=== PATIENT | male | born 1965 | race African-American/Black ===

== ENCOUNTER 2025-04-25 06:54 | Emergency (ER) | payer OTHER ==
[~2025-04-25] VITALS: Ht 182.9 cm; Wt 104.3 kg
[2025-04-25 07:00] VITALS: TEMP 98.4
[2025-04-25 07:51] LABS: BASOPHILS % 0.4 % (0.0-1.0); EOSINOPHILS % 0.4 % (0.0-6.0); LYMPHOCYTES % 21.2 % (18.0-39.1); MONOCYTES % 7.3 % (4.4-11.3); NEUTROPHILS % 70.4 % (38.7-80.0); RED CELL DISTRIBUTION WIDTH 17.9 % (11.7-14.4)
[2025-04-25 08:06] LABS: EST GLOMERULAR FILTRATION RATE 50.0 ML/MIN (>=60)
[2025-04-25 08:07] LABS: LEUKOCYTE ESTERASE ,URINE NEGATIVE (NEGATIVE); PROTEIN,URINE DIPSTICK >=300 (NEGATIVE)
[2025-04-25 08:08] LABS: URINE UROBILINOGEN 1 mg/dL (0.2 - 1)
[2025-04-25] MEDS: SODIUM CHLORIDE 0.9% 1000ML 1,000 ML IV STA (08:09)
[2025-04-25] MEDS: ONDANSETRON HCL INJ 2MG/ML 2ML 2 MG/ML VIAL IV STA (08:09)
[2025-04-25 08:12] LABS: INR 0.9
[2025-04-25 08:18] LABS: EPITHELIAL CELLS,URINE FEW /LPF; WBC,URINE (MAN) 0-5 /HPF (0-5)
[2025-04-25 09:00] VITALS: PULSE 96; RESP 12; O2SAT 96
[2025-04-25] MEDS ORDERED: FLOMAX0.4 MG PO (09:16)
[2025-04-25] MEDS ORDERED: PANTOPRAZOLE SO40 MG PO (09:16)
[2025-04-25] MEDS ORDERED: ONDANSETRON ODT4 MG PO (09:16)
== END 2025-04-25 09:30 | disposition home or self-care (01) ==
LOC: ER 07:12
DX: R11.2 Nausea with vomiting, unspecified (principal); N28.9 Disorder of kidney and ureter, unspecified; E86.0 Dehydration; R42 Dizziness and giddiness; E11.65 Type 2 diabetes mellitus with hyperglycemia; E11.40 Type 2 diabetes mellitus with diabetic neuropathy, unspecified; I10 Essential (primary) hypertension; I50.9 Heart failure, unspecified
CPT/HCPCS: 36415; 70450; 71045; 74176; 80053; 81001; 83735; 84484; 85025; 85610; 85730; 93005; 99284; J2405; J2470; J7030